=== PATIENT | male | born 1965 | race Caucasian/White ===

== ENCOUNTER 2016-06-06 15:38 | Emergency (ER) | payer SELFPAY ==
[~2016-06-06 15:38] MED LIST: ASPIR-TRIN325 M2 PO; ASPIRIN81 MG PO; ATARAX25 MG PO; AUGMENTIN 875-11 TAB PO; BACTRIM DS TABL1 TAB PO; BACTRIM DS1 TAB PO; BUSPIRONE HCL10 M2 PO; CALCIUM 600 +1 EAC5 PO; CIPRO500 M2 PO; CIPRO500 MG/5 M PO; CLINDAMYCIN HC300 MG PO; IBUPROFEN800 MG PO; KLONOPIN1 M1 PO; LISINOPRIL; LOVASTATIN20 M1 PO; METFORMIN HCL500 M2 PO; MULTI-VITAMIN1 EAC1 PO; MULTIVITAMIN1 TAB PO; NIACIN1000 MG PO; PAROXETINE HCL30 M1 PO; PAXIL20 M1 PO; PRILOSEC OTC20 M1 PO; SIMVASTATIN40 M1 PO; ZESTRIL40 M2 PO
[2016-06-06] MEDS ORDERED: VICTOZA 2-0.6 MG/0.1 SC (15:55)
[2016-06-06] MEDS ORDERED: XARELTO20 M2 PO (15:56)
[2016-06-06] MEDS ORDERED: ZOCOR40 M1 PO (15:57)
[2016-06-06] MEDS ORDERED: ULTRAM50 M1 PO (15:57)
[2016-06-06 16:11] LABS: BASO % 0.4 % (0-2); EOS % 1.3 % (0-7); EOSINOPHIL ABSOLUTE COUNT 0.1 tho/cmm (0.0-0.7); HCT-HEMATOCRIT 40.9 % (36.0-53.5); HGB-HEMOGLOBIN 14.8 gm/dl (13.5-17.0); IMMATURE GRANULOCYTES ABSOLUTE 0.01 tho/cmm (0-0.03); IMMATURE GRANULOCYTES PERCENT 0.2 % (0-0.3); LYMPH % 31.3 % (20-45); LYMPH ABSOLUTE COUNT 1.5 tho/cmm (0.8-4.5); MCH (MEAN CORPUSCULAR HGB) 31.7 pg (28.0-32.0); MCHC MEAN CORPUSCULAR HGB CONC 36.2 % (32.0-36.0); MCV (MEAN CELL VOLUME) 87.6 fl (82.0-96.0); MONO % 8.9 % (0-12); MONOCYTE ABSOLUTE COUNT 0.4 tho/cmm (0.0-1.2); NEUTROPHIL ABSOLUTE COUNT 2.7 tho/cmm (1.6-8.0); NEUTROPHIL-AUTOMATED 2.7 tho/cmm (1.6-8.0); NEUTROPHILS % 57.9 % (40-80); PLATELET COUNT 160 tho/cmm (150-450); RED BLOOD COUNT 4.67 mil/cmm (4.40-5.70); RED CELL DISTRIBUTION WIDTH 12.7 % (12.4-16.4); WHITE BLOOD COUNT 4.6 tho/cmm (4.0-10.0)
[2016-06-06 16:27] LABS: ANION GAP 11 mmol/L (0-20); BLOOD UREA NITROGEN 7 mg/dl (6-24); CALCIUM 8.5 mg/dl (8.5-10.5); CARBON DIOXIDE-VENOUS 29 mmol/L (22-32); CHLORIDE 104 mmol/l (96-110); CREATININE 0.94 mg/dl (0.60-1.30); GLUCOSE 201 mg/dL (70-110); POTASSIUM 3.9 mmol/L (3.7-5.1); SODIUM 140 mmol/L (135-145); eGFR VALUE FOR BLACK >90 mL/Min
== END 2016-06-06 18:19 ==
LOC: EDMED 15:38
PROVIDERS: Emergency Medicine
DX: R07.1 Chest pain on breathing (principal); E11.65 Type 2 diabetes mellitus with hyperglycemia; E78.5 Hyperlipidemia, unspecified; Z79.899 Other long term (current) drug therapy; Z86.711 Personal history of pulmonary embolism